=== PATIENT | male | born 1985 | race Two or more races ===

== ENCOUNTER 2017-10-11 20:56 | Emergency (ER) | payer OTHER ==
[2017-10-11] MEDS: HYDROcodone/APAP 5/325MG 1 TAB TABLET PO (22:10)
[2017-10-11 22:31] LABS: BILIRUBIN,URINE NEGATIVE (NEG); CLARITY,URINE CLOUDY; COLOR,URINE YELLOW; GLUCOSE,URINE NEGATIVE (NEG); NITRITE,URINE NEGATIVE (NEG); PROTEIN,URINE NEGATIVE (NEG-TRACE)
[2017-10-11 22:37] LABS: RBC,URINE OCC /HPF (0-2)
[2017-10-11 22:38] LABS: BACTERIA,URINE 0 /HPF (0-FEW); SQUAMOUS EPITHELIAL CELL,UR OCC /LPF; WBC,URINE OCC /HPF (0-4)
== END 2017-10-12 00:39 | disposition home or self-care (01) ==
LOC: ER 10-12 00:39
DX: N50.3 Cyst of epididymis (principal); Z98.52 Vasectomy status
CPT/HCPCS: 76870; 81001; 99285-25